=== PATIENT | male | born 1965 | race African-American/Black ===

== ENCOUNTER 2018-12-04 08:02 | Emergency (ER) | payer MEDICARE ==
[~2018-12-04] VITALS: Ht 182.9 cm; Wt 74.0 kg
[2018-12-04] MEDS ORDERED: ALBUTEROL (0.083%) 2.5MG/3ML NEB HHN STA (08:40)
[2018-12-04] MEDS ORDERED: IPRATROPIUM BROMIDE (0.02%) 0.5MG/2.5ML NEB HHN STA (08:40)
[2018-12-04] MEDS ORDERED: METHYLPREDNISOLONE SOD SUCC 125 MG/2 ML VIAL IV STA (08:40)
[2018-12-04 09:25] LABS: BASOPHILS % 0.8 % (0.0-2.0); EOSINOPHILS % 4.8 % (0.0-5.0); HEMATOCRIT. 41.7 % (42.0-52.0); HEMOGLOBIN. 14.6 g/dL (14.0-18.0); LYMPHOCYTES % 26.2 % (20.0-50.0); MEAN CORPUSCULAR HEMOGLOBIN 29.8 pg (28.0-32.0); MEAN CORPUSCULAR VOLUME 85.3 fL (80.0-94.0); MEAN PLATELET VOLUME 8.6 fl (7.4-10.4); NEUTROPHILS % 56.2 % (40.0-76.0); PLATELET 135 x1000/uL (130-400); RED BLOOD CELL COUNT 4.89 mill/uL (4.7-6.1); RED CELL DISTRIBUTION WIDTH 15.3 % (11.6-14.6)
[2018-12-04 09:29] LABS: CHLORIDE 107 mEq/L (98-107)
[2018-12-04 12:14] VITALS: BP 163/85
== END 2018-12-04 12:18 | disposition home or self-care (01) ==
LOC: ER 08:02
DX: J44.1 Chronic obstructive pulmonary disease with (acute) exacerbation (principal)
CPT/HCPCS: 36415; 71045; 80053; 83880; 84484; 85025; 93005; 94644; 96374; 99285; J2930; J7611

== ENCOUNTER 2019-11-14 00:53 | Inpatient (IN) | payer MEDICARE ==
[~2019-11-14] VITALS: Ht 165.1 cm; Wt 64.4 kg
[2019-11-14] MEDS ORDERED: METHYLPREDNISOLONE SOD SUCC 125 MG/2 ML VIAL IV STA (01:07)
[2019-11-14] MEDS ORDERED: IPRATROPIUM BROMIDE (0.02%) 0.5MG/2.5ML NEB HHN STA (01:07)
[2019-11-14] MEDS ORDERED: MAGNESIUM 2 G PREMIX 50 ML IV ONE (01:15)
[2019-11-14] MEDS ORDERED: ALBUTEROL (0.083%) 2.5MG/3ML NEB HHN SCH (01:30)
[2019-11-14 01:43] LABS: BASOPHILS % 0.8 % (0.0-2.0); EOSINOPHILS % 4.4 % (0.0-5.0); HEMATOCRIT. 42.7 % (42.0-52.0); HEMOGLOBIN. 14.7 g/dL (14.0-18.0); LYMPHOCYTES % 41.8 % (20.0-50.0); MEAN CORPUSCULAR HEMOGLOBIN 30.4 pg (28.0-32.0); MEAN CORPUSCULAR VOLUME 88.5 fL (80.0-94.0); MEAN PLATELET VOLUME 8.6 fl (7.4-10.4); MONOCYTES % 11.9 % (2.0-8.0); NEUTROPHILS % 41.1 % (40.0-76.0); PLATELET 157 x1000/uL (130-400); RED BLOOD CELL COUNT 4.82 mill/uL (4.7-6.1); RED CELL DISTRIBUTION WIDTH 14.2 % (11.6-14.6)
[2019-11-14 01:45] LABS: CHLORIDE 107 mEq/L (98-107)
[2019-11-14 02:30] LABS: BG BASE EXCESS -1.1 mmol/L (-2.0-2.0); BG FRACTION INSPIRED OXYGEN 28; BG HCO3 ACT 22.7 mmol/L (22.0-26.0); BG PCO2 35.2 mmHg (35.0-45.0); BG PH 7.427 (7.350-7.450); BG PO2 112.3 mmHg (75.0-100.0); BG SAMPLE SITE LEFT RADIAL; BG TOTAL HEMOGLOBIN 14.2 g/dL (12.0-18.0); BG VENT MODE NASAL CANNULA
[2019-11-14 09:24] VITALS: BP 157/85
[2019-11-14 10:00] VITALS: BP 157/85
[2019-11-14] MEDS ORDERED: AMLODIPINE 5MG TABLET PO SCH (10:00)
[2019-11-14] MEDS: ENOXAPARIN 40MG/0.4ML SYR SUBCUT SCH (11:42)
[2019-11-14] MEDS: AMLODIPINE 5MG TABLET PO SCH ×2 (11:42→21:57)
[2019-11-14 12:00] VITALS: BP 155/80
[2019-11-14] MEDS: METHYLPREDNISOLONE SOD SUCC 40 MG/ML VIAL IV SCH ×2 (12:50→21:57)
[2019-11-14] MEDS: IPRATROPIUM/ALBUTEROL 0.5-3(2.5)MG/3ML NEB HHN SCH ×2 (14:02→20:48)
[2019-11-14] MEDS ORDERED: GUAIFENESIN-DM 200MG-20MG/10ML UDC PO PRN (16:30)
[2019-11-14] MEDS: DOXYCYCLINE 100 MG in DEXT 5% WATER 100 ML IV SCH (16:59)
[2019-11-14] MEDS: LOSARTAN POTASSIUM 25 MG TABLET PO SCH (16:59)
[2019-11-14] MEDS ORDERED: AMLO5TAB88 MT (17:19)
[2019-11-14] MEDS ORDERED: BUDE6HFA INH (17:19)
[2019-11-14 17:28] LABS: *AMPHETAMINES SCREEN URINE NEGATIVE (NEGATIVE); *BARBITURATES SCREEN URINE NEGATIVE (NEGATIVE); *BENZODIAZEPINES SCREEN URINE NEGATIVE (NEGATIVE); *COCAINE SCREEN URINE NEGATIVE (NEGATIVE); METHADONE URINE SCREEN NEGATIVE (NEGATIVE)
[2019-11-14 17:29] LABS: CANNABINOID URINE SCREEN NEGATIVE (NEGATIVE); OPIATES URINE SCREEN NEGATIVE (NEGATIVE); PHENCYCLIDINE URINE SCREEN NEGATIVE (NEGATIVE)
[2019-11-14 20:00] VITALS: BP 147/52
[2019-11-14] MEDS: BENZONATATE 100MG CAPSULE PO PRN (22:25)
[2019-11-15 00:30] VITALS: BP 128/70
[2019-11-15] MEDS: IPRATROPIUM/ALBUTEROL 0.5-3(2.5)MG/3ML NEB HHN SCH ×5 (00:42→16:38)
[2019-11-15 04:32] VITALS: BP 130/72
[2019-11-15 04:33] VITALS: BP 130/72
[2019-11-15] MEDS: METHYLPREDNISOLONE SOD SUCC 40 MG/ML VIAL IV SCH ×2 (05:07→16:31)
[2019-11-15] MEDS: DOXYCYCLINE 100 MG in DEXT 5% WATER 100 ML IV SCH (05:07)
[2019-11-15 07:26] LABS: BASOPHILS % 0.1 % (0.0-2.0); HEMATOCRIT. 41.1 % (42.0-52.0); HEMOGLOBIN. 14.3 g/dL (14.0-18.0); LYMPHOCYTES % 12.8 % (20.0-50.0); MEAN CORPUSCULAR HEMOGLOBIN 30.5 pg (28.0-32.0); MEAN CORPUSCULAR VOLUME 87.7 fL (80.0-94.0); MONOCYTES % 5.5 % (2.0-8.0); NEUTROPHILS % 81.6 % (40.0-76.0); PLATELET 165 x1000/uL (130-400); RED BLOOD CELL COUNT 4.69 mill/uL (4.7-6.1); RED CELL DISTRIBUTION WIDTH 14.2 % (11.6-14.6)
[2019-11-15 07:55] LABS: CHLORIDE 106 mEq/L (98-107)
[2019-11-15 08:00] VITALS: BP 136/79
[2019-11-15] MEDS: AMLODIPINE 5MG TABLET PO SCH (09:03)
[2019-11-15] MEDS: BENZONATATE 100MG CAPSULE PO PRN (09:03)
[2019-11-15] MEDS: LOSARTAN POTASSIUM 25 MG TABLET PO SCH (09:04)
[2019-11-15] MEDS: ENOXAPARIN 40MG/0.4ML SYR SUBCUT SCH (09:07)
[2019-11-15] MEDS ORDERED: AMLO5TAB88 PO (13:16)
[2019-11-15] MEDS ORDERED: LOSA25TA3 PO (13:16)
[2019-11-15] MEDS ORDERED: TIOT18CA3 INH (13:16)
[2019-11-15] MEDS ORDERED: PNEUMOCOCCAL 23-VAL P-SAC VAC 0.5 ML IM ONE (15:45)
[2019-11-15 17:07] VITALS: BP 131/78
[2019-11-15 17:13] VITALS: BP 131/72
== END 2019-11-15 17:30 | disposition home or self-care (01) | DRG 189 ==
LOC: ER 00:53 → 8WST 04:55 → EDBEDREQ 05:10 → EDBEDREQTM 05:10 → EDBEDREQ 05:13 → ENRESERV 08:18
PROVIDERS: ADMIT Internal Medicine; ATTEND Internal Medicine
DX: J96.00 Acute respiratory failure, unspecified whether with hypoxia or hypercapnia (principal); E87.1 Hypo-osmolality and hyponatremia; J44.0 Chronic obstructive pulmonary disease with (acute) lower respiratory infection; J44.1 Chronic obstructive pulmonary disease with (acute) exacerbation; J84.9 Interstitial pulmonary disease, unspecified; J20.9 Acute bronchitis, unspecified; F17.210 Nicotine dependence, cigarettes, uncomplicated; I10 Essential (primary) hypertension; I45.10 Unspecified right bundle-branch block; R73.9 Hyperglycemia, unspecified; R74.0 Nonspecific elevation of levels of transaminase and lactic acid dehydrogenase [LDH]; Z79.51 Long term (current) use of inhaled steroids; Z79.899 Other long term (current) drug therapy; Z91.14 Patient's other noncompliance with medication regimen; Z91.19 Patient's noncompliance with other medical treatment and regimen; Z71.6 Tobacco abuse counseling
CPT/HCPCS: 36415; 36600; 71045; 80048; 80053; 80061; 80305; 82375; 82805; 83605; 83735; 83880; 84484; 85025; 90732; 93005; 93306; 94618; 94640; 97162; 99291; J1650; J2920; J2930; J3475; J3490; J7060

== ENCOUNTER 2020-07-04 11:55 | Emergency (ER) | payer MEDICARE ==
[~2020-07-04] VITALS: Ht 170.2 cm; Wt 64.0 kg
[~2020-07-04 11:55] MED LIST: AMLO5TAB88 PO; BUDE6HFA INH; LOSA25TA3 PO; TIOT18CA3 INH
[2020-07-04 12:31] LABS: BASOPHILS % 1.3 % (0.0-2.0); EOSINOPHILS % 0.4 % (0.0-5.0); HEMATOCRIT. 41.5 % (42.0-52.0); HEMOGLOBIN. 14.3 g/dL (14.0-18.0); LYMPHOCYTES % 20.8 % (20.0-50.0); MEAN CORPUSCULAR HEMOGLOBIN 29.7 pg (28.0-32.0); MEAN CORPUSCULAR VOLUME 85.9 fL (80.0-94.0); MEAN PLATELET VOLUME 7.9 fl (7.4-10.4); MONOCYTES % 10.9 % (2.0-8.0); NEUTROPHILS % 66.6 % (40.0-76.0); PLATELET 157 x1000/uL (130-400); RED BLOOD CELL COUNT 4.83 mill/uL (4.7-6.1); RED CELL DISTRIBUTION WIDTH 14.9 % (11.6-14.6)
[2020-07-04 12:38] LABS: CHLORIDE 106 mEq/L (98-107)
[2020-07-04] MEDS ORDERED: MECL-159 MT (13:13)
[2020-07-04 13:35] VITALS: BP 138/75
== END 2020-07-04 13:36 | disposition home or self-care (01) ==
LOC: ER 11:55
DX: H81.399 Other peripheral vertigo, unspecified ear (principal); J44.1 Chronic obstructive pulmonary disease with (acute) exacerbation; I10 Essential (primary) hypertension
CPT/HCPCS: 36415; 71045; 80048; 84484; 85025; 93005; 99285

== ENCOUNTER 2021-01-11 17:30 | Emergency (ER) | payer MEDICARE ==
[~2021-01-11] VITALS: Ht 165.1 cm; Wt 69.0 kg
[~2021-01-11 17:30] MED LIST changes: +MECL-159 MT
[2021-01-11 17:53] VITALS: BP 134/74
== END 2021-01-11 18:19 | disposition left against medical advice (07) ==
LOC: ER 17:30
DX: R06.02 Shortness of breath (principal); Z53.21 Procedure and treatment not carried out due to patient leaving prior to being seen by health care provider

== ENCOUNTER 2021-04-20 15:14 | Inpatient (IN) | payer MEDICARE ==
[~2021-04-20] VITALS: Ht 170.2 cm; Wt 68.5 kg
[2021-04-20] MEDS ORDERED: IPRATROPIUM BROMIDE (0.02%) 0.5MG/2.5ML NEB HHN ONE (15:30)
[2021-04-20] MEDS ORDERED: ALBUTEROL (0.5%) 2.5MG/0.5ML NEB HHN ONE (15:30)
[2021-04-20] MEDS ORDERED: SODIUM CHLORIDE 0.9% 1000ML BAG (SEPSIS BOLUS) IV ONE (16:00)
[2021-04-20 16:26] LABS: BASOPHILS % 0.9 % (0.0-2.0); EOSINOPHILS % 0.8 % (0.0-5.0); LYMPHOCYTES % 17.7 % (20.0-50.0); MEAN CORPUSCULAR HEMOGLOBIN 30.2 pg (28.0-32.0); MEAN CORPUSCULAR VOLUME 90.3 fL (80.0-94.0); MEAN PLATELET VOLUME 7.8 fl (7.4-10.4); MONOCYTES % 6.3 % (2.0-8.0); NEUTROPHILS % 74.3 % (40.0-76.0); PLATELET 383 x1000/uL (130-400); RED BLOOD CELL COUNT 2.15 mill/uL (4.7-6.1); RED CELL DISTRIBUTION WIDTH 16.1 % (11.6-14.6)
[2021-04-20 16:31] LABS: CHLORIDE 101 mEq/L (98-107)
[2021-04-20 16:34] LABS: HEMATOCRIT. 19.4 % (42.0-52.0); HEMOGLOBIN. 6.5 g/dL (14.0-18.0)
[2021-04-20] MEDS ORDERED: AZITHROMYCIN 500 MG in DEXT 5% WATER 250 ML IV SCH (16:45)
[2021-04-20] MEDS ORDERED: CEFTRIAXONE 1 G PREMIX 50 ML IV ONE (16:45)
[2021-04-20] MEDS ORDERED: PANTOPRAZOLE 80 MG in SODIUM CHLORIDE 0.9% 100 ML IV SCH ×2 (17:15→19:15)
[2021-04-20] MEDS ORDERED: CLONIDINE 0.1MG TABLET PO PRN (19:45)
[2021-04-20] MEDS ORDERED: IPRATROPIUM/ALBUTEROL 0.5-3(2.5)MG/3ML NEB NEB PRN (19:45)
[2021-04-20] MEDS ORDERED: ONDANSETRON HCL 4MG/2ML INJ IV PRN (19:45)
[2021-04-20] MEDS ORDERED: DEXT 5%/LACTATED RINGERS 1,000 ML IV SCH (19:45)
[2021-04-20] MEDS ORDERED: DOCUSATE SODIUM 100MG CAPSULE PO PRN (19:45)
[2021-04-20] MEDS ORDERED: GUAIFENESIN 200MG/10ML SUGAR FREE UDC PO PRN (19:45)
[2021-04-20] MEDS ORDERED: ACETAMINOPHEN 325MG TABLET PO PRN ×2 (19:45)
[2021-04-20] MEDS ORDERED: MAGNESIUM/ALUMINUM HYDROXIDE/SIMETHICONE 30ML UDC PO PRN (19:45)
[2021-04-20 20:13] LABS: ETHANOL BLOOD < 10 mg/dL
[2021-04-20 20:15] LABS: TOTAL IRON BINDING CAPACITY 317 ug/dL (250-450)
[2021-04-20 20:38] LABS: FOLIC ACID (FOLATE) SERUM 6.7 ng/mL (>5.38)
[2021-04-20 21:00] VITALS: BP 103/50
[2021-04-20 22:00] VITALS: BP 96/51
[2021-04-21] VITALS (10 sets, daily range): BP systolic 41–141; BP diastolic 29–66
[2021-04-21] MEDS ORDERED: NOREPINEPHRINE 32 MG in DEXT 5% WATER 218 ML IV PRN (01:30)
[2021-04-21] MEDS ORDERED: VASOPRESSIN 20 UNITS in SODIUM CHLORIDE 0.9% 100 ML IV PRN (02:30)
[2021-04-21] MEDS ORDERED: PHENYLEPHRINE 100 MG in DEXT 5% WATER 250 ML IV PRN (02:30)
[2021-04-21] MEDS ORDERED: DOPAMINE 800 MG PREMIX 250 ML IV PRN (02:30)
[2021-04-21] MEDS ORDERED: SODIUM CHLORIDE 0.9% 1,000 ML IV NR (03:15)
[2021-04-21] MEDS ORDERED: INFLUENZA VACCINE 05/PF 0.5 ML SYRINGE IM ONE (10:00)
[2021-04-21] MEDS ORDERED: CALCIUM CHLORIDE 1GM/10ML SYR IV ONE (10:32)
[2021-04-21] MEDS ORDERED: EPINEPHRINE 0.1MG/ML (1:10,000) 10ML SYR ONE (10:32)
[2021-04-21] MEDS ORDERED: SODIUM BICARBONATE 8.4% 1 MEQ/ML 50ML SYR IV ONE (10:32)
[2021-04-21] MEDS ORDERED: PANTOPRAZOLE 80 MG in SODIUM CHLORIDE 0.9% 100 ML IV SCH (19:45)
== END 2021-04-21 03:34 | DRG 871 ==
LOC: ER 15:14 → EDBEDREQ 18:37 → EDBEDREQSVC 18:37 → 5EST 19:31 → ENRESERV 19:48 → SUPCPDRO 20:40
PROVIDERS: ADMIT Internal Medicine; ATTEND Internal Medicine
PROC: 30233N1 Transfusion of Nonautologous Red Blood Cells into Peripheral Vein, Percutaneous Approach (ICD-10-PCS; principal; 2021-04-20)
PROC: 0BH17EZ Insertion of Endotracheal Airway into Trachea, Via Natural or Artificial Opening (ICD-10-PCS; 2021-04-20)
PROC: 5A1935Z Respiratory Ventilation, Less than 24 Consecutive Hours (ICD-10-PCS; 2021-04-20)
DX: A41.9 Sepsis, unspecified organism (principal); E43 Unspecified severe protein-calorie malnutrition; E87.1 Hypo-osmolality and hyponatremia; K92.2 Gastrointestinal hemorrhage, unspecified; E87.6 Hypokalemia; F10.10 Alcohol abuse, uncomplicated; Y90.9 Presence of alcohol in blood, level not specified; Z20.822 Contact with and (suspected) exposure to COVID-19; I11.0 Hypertensive heart disease with heart failure; I50.9 Heart failure, unspecified; I46.9 Cardiac arrest, cause unspecified; Z68.23 Body mass index [BMI] 23.0-23.9, adult
CPT/HCPCS: 36415; 71045; 80053; 80320; 82607; 82746; 82962; 83540; 83550; 83605; 83880; 84443; 84484; 85025; 85049; 86850; 86900; 86920; 87426; 92950; 93970; 94002; 94640; 99291; C9113; J0456; J0696; J2405; J3490; J7030; J7050; J7060; P9016; A4315; G0480